=== PATIENT | female | born 1960 | race Native Hawaiian/Other Pacific Islander ===

== ENCOUNTER 2017-07-24 17:07 | Emergency (ER) | payer OTHER ==
[2017-07-24 17:20] VITALS: BP 152/78; PULSE 74; RESP 16; TEMP 98.7
--- NOTE | 2017-07-24 17:43 | C.PDOC ---
History Of Present Illness 56-year-old female, presents to the emergency department with complaints of possible fungal infection to left big toe after a pedicure. Patient was in [facility], and developed pruritus around her left big toe two weeks ago. Patient used OTC meds with no relief. She made an appointment with podiatry for next week, but came in for evaluation. Denies fever, numbness/weakness. Time Seen by Provider: 07/24/17 17:22 Chief Complaint (Nursing): Lower Extremity Problem/Injury History Per: Patient History/Exam Limitations: no limitations Past Medical History Reviewed: Historical Data, Nursing Documentation, Vital Signs Vital Signs: Last Vital Signs Temp 98.7 F 07/24/17 17:17 Pulse 74 07/24/17 17:17 Resp 16 07/24/17 17:17 BP 152/78 H 07/24/17 17:17 Pulse Ox 97 07/24/17 20:02 - Medical History PMH: Arthritis, Diverticulitis, HTN Surgical History: Appendectomy Family History: States: No Known Family Hx - Social History Hx Alcohol Use: No Hx Substance Use: No - Immunization History Hx Tetanus Toxoid Vaccination: No Hx Influenza Vaccination: No Hx Pneumococcal Vaccination: No Review Of Systems Musculoskeletal: Positive for: Other (toe pain) Neurological: Negative for: Weakness, Numbness Physical Exam - Physical Exam Appears: Non-toxic, No Acute Distress Skin: Warm, Dry, No Rash Head: Normacephalic Extremity: Other (Swelling and raised skin surrounding nail with scaling: Left lower ext 1st digit, no tenderness, no erythema, no warmth, no open sores) Neurological/Psych: Oriented x3, Normal Speech, Normal Cognition ED Course And Treatment O2 Sat by Pulse Oximetry: 97 (RA) Pulse Ox Interpretation: Normal Disposition - Disposition Disposition: HOME/ ROUTINE Disposition Time: 17:50 Condition: STABLE Additional Instructions: Follow up with [facility] within 1-2 days. Return to ED if feel worse. Prescriptions: Naftifine HCl [Naftin] 1 appl TP DAILY #1 cre Ciclopirox [Penlac] 1 appl TP DAILY #6.6 ml Instructions: Ringworm, Athlete's Foot, and Jock Itch Forms: [employer] ([place]) - Clinical Impression Clinical Impression: Fungal infection of foot - Scribe Statement The provider has reviewed the documentation as recorded by the Scribe (Selvin Cheung) All medical record entries made by the Scribe were at my direction and personally dictated by me. I have reviewed the chart and agree that the record accurately reflects my personal performance of the history, physical exam, medical decision making, and the department course for this patient. I have also personally directed, reviewed, and agree with the discharge instructions and disposition.
[2017-07-24 19:55] VITALS: O2SAT 97
== END 2017-07-24 18:35 | disposition home or self-care (01) ==
LOC: C.ER 17:07
DX: B35.3 Tinea pedis (principal)

== ENCOUNTER 2018-05-08 07:47 | Outpatient (CLI) | payer OTHER | END 2018-05-08 07:48 | disposition home or self-care (01) | LOC: C.VASC 07:47 | DX: K59.00 Constipation, unspecified (principal); M25.60 Stiffness of unspecified joint, not elsewhere classified; R25.2 Cramp and spasm ==

== ENCOUNTER 2018-05-08 07:57 | Outpatient (CLI) | payer OTHER | END 2018-05-08 07:58 | disposition home or self-care (01) | LOC: C.LAB 07:57 | DX: K76.0 Fatty (change of) liver, not elsewhere classified (principal); R74.0 Nonspecific elevation of levels of transaminase and lactic acid dehydrogenase [LDH]; E78.2 Mixed hyperlipidemia ==

== ENCOUNTER 2018-08-20 07:40 | Outpatient (CLI) | payer OTHER | END 2018-08-20 07:41 | disposition home or self-care (01) | LOC: C.MAMMO 07:40 | DX: Z12.31 Encounter for screening mammogram for malignant neoplasm of breast (principal) ==